=== PATIENT | male | born 1945 | race Caucasian/White ===

== ENCOUNTER 2018-07-06 16:59 | Emergency (ER) | payer MEDICARE, OTHER ==
[~2018-07-06] VITALS: Ht 167.6 cm; Wt 74.8 kg
[2018-07-06 17:17] VITALS: BP 100/59
--- NOTE | 2018-07-06 17:26 | NUR ---
RIGHT ANKLE PAIN X 2 WEEKS. INJURED 2 WEEKS AGO, NO FALL OR LOC. PATIENT KEPT COMFORTABLE IN BED, MD AT BEDSIDE FOR EVAL.
--- NOTE | 2018-07-06 18:46 | NUR ---
Patient discharged to home in stable condition. Written and verbal after care instructions given. Patient verbalizes understanding of instruction.
== END 2018-07-06 18:49 | disposition home or self-care (01) ==
LOC: ER 17:02
DX: M25.571 Pain in right ankle and joints of right foot (principal); Z98.890 Other specified postprocedural states; Z60.2 Problems related to living alone
CPT/HCPCS: 73610-TC; 73630-TC; 93971-TC

== ENCOUNTER 2018-07-16 17:36 | Emergency (ER) | payer OTHER ==
[~2018-07-16] VITALS: Ht 170.2 cm; Wt 72.6 kg
--- NOTE | 2018-07-16 18:15 | NUR ---
patient presented to the ER c/o chest pain, on room air, breathing evenly and unlabored. Connected to the monitor and pulse ox. kept comfortable, will continue to monitor accordingly.
[2018-07-16 18:23] LABS: BASOPHILS % (AUTO) 0.2 % (0.0-2.0); EOSINOPHILS % (AUTO) 7.6 % (0.0-6.0); HEMATOCRIT 42 % (39-51); HEMOGLOBIN 14.3 g/dL (13.5-17.5); LYMPHOCYTES # (AUTO) 1.9 /CMM (0.8-4.8); MEAN CORPUSCULAR HGB CONC 34 g/dl (31.0-36.0); MEAN CORPUSCULAR VOLUME 96 fL (80-96); MONOCYTES # (AUTO) 0.9 /CMM (0.1-1.30); MONOCYTES % (AUTO) 7.5 % (2.0-12.0); NEUTROPHILS # (AUTO) 8.2 /CMM (1.8-8.9); NEUTROPHILS % (AUTO) 68.7 % (43.0-81.0); PLATELET COUNT (AUTO) 265 /CMM (150-450); RED BLOOD CELL COUNT(AUTO) 4.43 MIL/uL (4.5-6.0)
--- NOTE | 2018-07-16 18:29 | NUR ---
customer support technician at bedside for exam.
[2018-07-16 18:35] LABS: CALCIUM, SERUM 8.3 mg/dL (8.5-10.1); CARBON DIOXIDE 28 mmol/L (21-32); CHLORIDE 100 mmol/L (98-107); CREATININE 1.7 mg/dL (0.6-1.3); GLUCOSE 110 mg/dL (74-106); POTASSIUM 3.9 mmol/L (3.5-5.1); SODIUM SERUM 136 mmol/L (136-145); UREA NITROGEN, BLOOD 23 mg/dL (7-18)
[2018-07-16 18:47] LABS: ALANINE AMINOTRANSFERASE 17 U/L (12-78); ALBUMIN 3.1 g/dL (3.4-5.0); ALKALINE PHOSPHATASE 86 U/L (46-116); ASPARTATE AMINOTRANSFERASE 18 U/L (15-37); B-TYPE NATRIURETIC PEPTIDE 1804 PG/ML (0-125); BILIRUBIN,DIRECT 0.2 mg/dL (0.0-0.2); BILIRUBIN,TOTAL 0.8 mg/dL (0.2-1.0); TOTAL PROTEIN, SERUM 7.2 g/dL (6.4-8.2)
--- NOTE | 2018-07-16 19:05 | NUR ---
report given to Mateusz HAN for jana.
--- NOTE | 2018-07-16 19:05 | NUR ---
REPORT RECEIVED FROM EMELY MENDIOLA FOR [facility]. PT IS IN BED AAOX4. NAD. BREATHING EVEN AND UNLABORED. XRAY AT BEDSIDE.
--- NOTE | 2018-07-16 19:52 | NUR ---
Patient does not wish to proceed with medical care recommended by Dr. Pruitt. Patient given information related to possible complications, up to and including , which could occur as a result of leaving the hospital at this time. Patient verbalizes understanding of risks involved due to leaving against medical advice. Patient has signed AMA form.
[2018-07-16 19:53] VITALS: BP 158/89
== END 2018-07-16 19:54 | disposition left against medical advice (07) ==
LOC: ER 17:38
DX: R06.02 Shortness of breath (principal); I45.10 Unspecified right bundle-branch block; Z95.2 Presence of prosthetic heart valve; Z98.890 Other specified postprocedural states; Z60.2 Problems related to living alone
CPT/HCPCS: 36415; 71045-TC; 80048-TC; 80076-TC; 83880; 84484-TC; 85025-TC; 85730-TC; 93307-TC